=== PATIENT | female | born 1940 | race Caucasian/White ===

== ENCOUNTER 2024-01-05 12:13 | Emergency (ER) | payer MEDICARE, MEDICAID ==
[2024-01-05 12:51] LABS: APPEARANCE,URINE CLEAR (CLEAR); BILIRUBIN,URINE NEGATIVE (NEGATIVE); COLOR,URINE YELLOW; GLUCOSE,URINE NEGATIVE (NEGATIVE); KETONES,URINE NEGATIVE (NEGATIVE); LEUKOCYTE ESTERASE,URINE NEGATIVE (NEGATIVE); NITRITE,URINE NEGATIVE (NEGATIVE); OCCULT BLOOD,URINE NEGATIVE (NEGATIVE); PROTEIN,URINE NEGATIVE (NEGATIVE); UROBILINOGEN,URINE 0.2 E.U./dL (0.2-1.0)
== END 2024-01-05 13:15 | disposition home or self-care (01) ==
LOC: LB.ED 12:13
DX: I95.9 Hypotension, unspecified (principal)
CPT/HCPCS: 81003; 93005; 99285

== ENCOUNTER 2024-04-17 08:38 | Inpatient (IN) | payer MEDICAID, MEDICARE ==
[2024-04-17] MEDS ORDERED: Sodium Chloride 0.9% 10 ML Syringe FLUSH PRN (08:45)
[2024-04-17] MEDS: Aspirin 81 MG Tab.Chew PO ONE (08:59)
[2024-04-17] MEDS: Diltiazem 50 MG/10 ML SDV IVPUSH ONE (09:09)
[2024-04-17] MEDS: Sodium Chloride 0.9% 500 ML IV ONE (09:14)
[2024-04-17 09:16] LABS: BASOPHILS ABSOLUTE AUTO 0.02 K/uL (0.02-0.10); BASOPHILS PERCENT AUTO 0.3 % (0.0-0.5); EOSINOPHILS PERCENT AUTO 3.8 % (1.0-5.0); HEMOGLOBIN 12.9 g/dL (11.5-16.5); LYMPHOCYTES ABSOLUTE AUTO 1.37 K/uL (1.50-4.00); LYMPHOCYTES PERCENT AUTO 17.2 % (20.0-40.0); MEAN CORPUSCULAR HEMOGLOBIN 29.3 pg (27.0-32.0); MEAN CORPUSCULAR HGB CONC 32.3 g/dL (31.0-35.0); MEAN CORPUSCULAR VOLUME 91 fL (76-96); MEAN PLATELET VOLUME 9.9 fL (6.0-10.0); MONOCYTES ABSOLUTE AUTO 0.91 K/uL (0.20-0.80); MONOCYTES PERCENT AUTO 11.4 % (3.0-10.0); NEUTROPHILS ABSOLUTE AUTO 5.37 K/uL (2.00-7.50); NEUTROPHILS PERCENT AUTO 67.3 % (45.0-70.0); PLATELET COUNT,PLT 213 K/uL (150-500); RED BLOOD CELL COUNT 4.41 M/uL (3.80-5.80); RED CELL DISTRIBUTION WIDTH 14.1 % (11.0-16.0)
[2024-04-17] MEDS: Nitroglycerin 0.4 MG Tab.SL SL PRN (09:17)
[2024-04-17] MEDS ORDERED: Naloxone 2 MG/2 ML Syringe IVPUSH PRN (09:28)
[2024-04-17] MEDS: fentaNYL 100 MCG/2 ML SDV IVPUSH PRN (09:31)
[2024-04-17 09:37] LABS: A/G RATIO 0.8 (0.8-2.0); ALANINE AMINOTRANSFERASE,ALT 16 U/L (12-78); ALBUMIN 3.4 g/dL (3.4-5.0); ALKALINE PHOSPHATASE 120 U/L (46-116); ANION GAP 11.7 mmol/L (5.0-15.0); ASPARTATE AMNIOTRANSFERASE,AST 22 U/L (15-37); BILIRUBIN TOTAL 0.7 mg/dL (0.0-1.0); BLOOD UREA NITROGEN,BUN 22 mg/dL (8-26); BUN/CREATININE RATIO 18.2 (6-25); CALCIUM 9.2 mg/dL (8.5-10.1); CARBON DIOXIDE,CO2 28.9 mmol/L (21.0-32.0); CHLORIDE,CL 98 mmol/L (98-107); CREATININE 1.21 mg/dL (0.55-1.02); ESTIMATED GFR 45 mL/min (>60); GLUCOSE RANDOM 100 mg/dL (74-100); POTASSIUM,K 4.6 mmol/L (3.5-5.1); PROTEIN TOTAL,TP 7.5 g/dL (6.4-8.2); SODIUM,NA 134 mmol/L (136-145)
[2024-04-17 09:46] LABS: MAGNESIUM 1.8 mg/dL (1.8-2.4); TROPONIN I HIGH SENSITIVITY 10.4 pg/ml (<=60.4)
[2024-04-17 09:48] LABS: PROTHROMBIN TIME 10.9 sec (9.0-11.5)
[2024-04-17] MEDS: Sodium Chloride 0.9% 50 ML SDV FLUSH ONE (10:31)
[2024-04-17] MEDS: Iopamidol 612 MG/ML 100 ML Bottle IV SCH (10:31)
[2024-04-17] MEDS: Heparin Sodium 5,000 Units/ML Vial IVPUSH ONE (11:44)
[2024-04-17] MEDS: fentaNYL 100 MCG/2 ML SDV ONE (12:44)
[2024-04-17] MEDS: Heparin Sodium 1,000 Units/ML 10 ML MDV ONE (12:44)
[2024-04-17] MEDS: Furosemide 40 MG/4 ML VIAL IVPUSH ONE (13:42)
[2024-04-17] MEDS: Furosemide 40 MG/4 ML VIAL ONE (13:44)
[2024-04-17] MEDS: Diltiazem 100 MG in Sodium Chloride 0.9% 100 ML IV SCH (15:19)
[2024-04-17] MEDS: Heparin Sodium/D5W 25,000 UNITS/500 ML BAG IV SCH (15:21)
[2024-04-17] MEDS: Metoprolol Tartrate 5 MG/5 ML SDV IVPUSH ONE (17:14)
[2024-04-17] MEDS: Acetaminophen 325 MG Tab PO PRN (19:33)
[2024-04-17] MEDS: atorvaSTATin 40 MG Tab PO SCH (19:33)
[2024-04-17] MEDS: Carvedilol 6.25 MG Tab PO SCH (19:34)
[2024-04-17] MEDS: Memantine 10 MG Tab PO SCH (19:35)
[2024-04-17] MEDS ORDERED: Non-Formulary Medication 1 Each (Memantine Hcl [Memantine Hcl] 5 MG Tablet) PO SCH (20:00)
[2024-04-17] MEDS ORDERED: Non-Formulary Medication 1 Each (Vit A/Vit C/Vit E/Zinc/Copper [Preservision] 1 EACH Table PO SCH (20:00)
[2024-04-18] MEDS: Polyethylene Glycol 3350 Powder 17 GM Packet PO SCH (07:48)
[2024-04-18] MEDS: Aspirin 81 MG Tab.Chew PO SCH (07:49)
[2024-04-18] MEDS: Pantoprazole 40 MG Tab.CR PO SCH (07:49)
[2024-04-18] MEDS: Ferrous Sulfate 325 MG Tab PO SCH (07:49)
[2024-04-18] MEDS: Spironolactone 100 MG Tab PO SCH (07:49)
[2024-04-18] MEDS: Cholecalciferol (Vitamin D3) 2,000 Unit Cap PO SCH (07:49)
[2024-04-18] MEDS: Sertraline 100 MG Tab PO SCH (07:50)
[2024-04-18] MEDS: Fluticasone NASAL Spray 16 GM Bottle NASBOTH SCH (07:50)
[2024-04-18] MEDS: Calcium Carbonate/Vitamin D3 1500 MG-400 Units Tab PO SCH (07:50)
[2024-04-18] MEDS ORDERED: Non-Formulary Medication 1 Each (Pantoprazole Sodium [Protonix] 20 MG Tablet.Dr) PO SCH (08:00)
[2024-04-18] MEDS ORDERED: Non-Formulary Medication 1 Each (Fluticasone Propionate [Flonase Allergy Relief] 9.9 ML Sp NASBOTH SCH (08:00)
[2024-04-18] MEDS ORDERED: Non-Formulary Medication 1 Each (Calcium Carbonate/Vitamin D3 [Calcium 600-Vit D3 400 Tabl PO SCH (08:00)
[2024-04-18 09:19] LABS: BASOPHILS ABSOLUTE AUTO 0.02 K/uL (0.02-0.10); BASOPHILS PERCENT AUTO 0.2 % (0.0-0.5); EOSINOPHILS ABSOLUTE AUTO 0.06 K/uL (0.04-0.40); EOSINOPHILS PERCENT AUTO 0.6 % (1.0-5.0); HEMATOCRIT 38.8 % (37.0-47.0); HEMOGLOBIN 12.4 g/dL (11.5-16.5); LYMPHOCYTES ABSOLUTE AUTO 0.69 K/uL (1.50-4.00); LYMPHOCYTES PERCENT AUTO 7.3 % (20.0-40.0); MEAN CORPUSCULAR VOLUME 91 fL (76-96); MEAN PLATELET VOLUME 9.9 fL (6.0-10.0); MONOCYTES ABSOLUTE AUTO 0.96 K/uL (0.20-0.80); MONOCYTES PERCENT AUTO 10.1 % (3.0-10.0); NEUTROPHILS ABSOLUTE AUTO 7.75 K/uL (2.00-7.50); NEUTROPHILS PERCENT AUTO 81.8 % (45.0-70.0); PLATELET COUNT,PLT 192 K/uL (150-500); RED BLOOD CELL COUNT 4.27 M/uL (3.80-5.80); RED CELL DISTRIBUTION WIDTH 14.3 % (11.0-16.0); WHITE BLOOD CELL COUNT,WBC 9.5 K/uL (4.0-11.0)
[2024-04-18 10:00] LABS: ANION GAP 11.3 mmol/L (5.0-15.0); CALCIUM 8.9 mg/dL (8.5-10.1); CARBON DIOXIDE,CO2 28.7 mmol/L (21.0-32.0); CREATININE 1.35 mg/dL (0.55-1.02); EST CRCL DRUG DOSING (CG) 33.58 mL/min
[2024-04-18] MEDS: Levofloxacin/Dextrose 5%-Water 150 ML IV SCH (10:40)
[2024-04-18] MEDS: Apixaban 5 MG Tab PO ONE (10:40)
[2024-04-18] MEDS: Diltiazem 180 MG Cap.CD PO SCH (19:59)
[2024-04-18] MEDS: Albuterol/Ipratropium 3.0-0.5 MG/3 ML Neb Soln NEB PRN (20:18)
[2024-04-18] MEDS: Albuterol/Ipratropium 3.0-0.5 MG/3 ML Neb Soln ONE (20:30)
[2024-04-18] MEDS: LORazepam 1 MG Tab PO PRN (21:16)
[2024-04-19] MEDS ORDERED: Diltiazem 180 MG Cap.CD PO SCH (08:00)
[2024-04-19 09:20] LABS: BASOPHILS ABSOLUTE AUTO 0.02 K/uL (0.02-0.10); BASOPHILS PERCENT AUTO 0.2 % (0.0-0.5); EOSINOPHILS ABSOLUTE AUTO 0.04 K/uL (0.04-0.40); EOSINOPHILS PERCENT AUTO 0.4 % (1.0-5.0); HEMATOCRIT 37.1 % (37.0-47.0); HEMOGLOBIN 11.9 g/dL (11.5-16.5); LYMPHOCYTES PERCENT AUTO 4.8 % (20.0-40.0); MEAN CORPUSCULAR HGB CONC 32.1 g/dL (31.0-35.0); MEAN CORPUSCULAR VOLUME 91 fL (76-96); MONOCYTES ABSOLUTE AUTO 1.06 K/uL (0.20-0.80); MONOCYTES PERCENT AUTO 10.3 % (3.0-10.0); NEUTROPHILS ABSOLUTE AUTO 8.71 K/uL (2.00-7.50); NEUTROPHILS PERCENT AUTO 84.3 % (45.0-70.0); PLATELET COUNT,PLT 188 K/uL (150-500); RED CELL DISTRIBUTION WIDTH 14.1 % (11.0-16.0); WHITE BLOOD CELL COUNT,WBC 10.3 K/uL (4.0-11.0)
[2024-04-19 09:34] LABS: ANION GAP 13.6 mmol/L (5.0-15.0); BUN/CREATININE RATIO 17.1 (6-25); CALCIUM 8.9 mg/dL (8.5-10.1); CARBON DIOXIDE,CO2 25.6 mmol/L (21.0-32.0); CREATININE 1.23 mg/dL (0.55-1.02); EST CRCL DRUG DOSING (CG) 36.85 mL/min; POTASSIUM,K 4.2 mmol/L (3.5-5.1)
[2024-04-19] MEDS: Bisacodyl 10 MG Supp RECTAL ONE (13:23)
[2024-04-19] MEDS: Furosemide 40 MG/4 ML VIAL IVPUSH ONE (14:44)
[2024-04-19] MEDS: Apixaban 2.5 MG Tab PO SCH (19:03)
[2024-04-19] MEDS: Diltiazem IR 60 MG Tab PO SCH (19:04)
[2024-04-19] MEDS: Sodium Chloride 0.9% 500 ML IV ONE (23:09)
== END 2024-04-20 05:30 | disposition expired | DRG 193 ==
LOC: LB.ED 08:38 → LB.MS 13:07
PROVIDERS: ADMIT Physician Assistant; ATTEND Surgery
DX: J18.9 Pneumonia, unspecified organism (principal); U07.1 COVID-19; F03.93 Unspecified dementia, unspecified severity, with mood disturbance; Z66 Do not resuscitate; I48.91 Unspecified atrial fibrillation; I11.0 Hypertensive heart disease with heart failure; I50.9 Heart failure, unspecified; I35.0 Nonrheumatic aortic (valve) stenosis; I49.3 Ventricular premature depolarization; E78.00 Pure hypercholesterolemia, unspecified; I95.9 Hypotension, unspecified; K21.9 Gastro-esophageal reflux disease without esophagitis; E66.9 Obesity, unspecified; Z79.82 Long term (current) use of aspirin; Z68.21 Body mass index [BMI] 21.0-21.9, adult; Z79.899 Other long term (current) drug therapy; Z98.890 Other specified postprocedural states; Z88.1 Allergy status to other antibiotic agents; Z88.0 Allergy status to penicillin; Z88.8 Allergy status to other drugs, medicaments and biological substances
CPT/HCPCS: 36415; 51702; 70450; 71045; 71260; 80048; 80053; 83735; 83880; 84484; 85025; 85379; 85610; 85730; 93005; 93010; 94640; 96361; 96374; 96375; 99222; 99232; 99238; 99285-25; A9270-GY; J1644; J1940; J1956; J3010; J3490; J7040; J7620; Q9967; U0002